=== PATIENT | female | born 1965 | race Caucasian/White ===

== ENCOUNTER → 2018-01-01 | Outpatient (CLI) | payer BC ==
[2018-01-01 15:08] VITALS: BP 137/86; PULSE 75; TEMP 97.9; BMI 51.9
--- NOTE | 2018-01-01 15:37 | P.HPBAR ---
Bariatric H&P - History & Physicial H&P Date: 01/01/18 History & Physicial: Visit/CC: initial visit Patient initial contact: Initial weight: Initial weight in pounds: Height: 5 ft 7 in Initial BMI: Last weight: Current weight: 150.411 kg Current weight in pounds: 331.60 Current BMI: 51.9 [place] body weight (based on NIH guidelines): 61.235 kg Excess body weight loss: The patient is a 52 year-old F who presents for Bariatric Assessment. Patient seen today as a new patient for bariatric clinic. She went to a recent seminar in November. She had a lap band placed in May 2002. Apparently her band was removed about a year later because of dysphagia symptoms. She denies having a infection of her band. Since that time she has regained her weight. She had been doing well with her weight loss at that time and believes that she lost over 100 pounds with her lap band. Currently the patient suffers from asthma, hypertension, mild heartburn symptoms. She also has a history of mitral valve prolapse. Denies DVT or dysphagia. She is interested in sleeve gastrectomy. She is not interested in the long-term sequela of gastric bypass. She does not use tobacco. Review of Systems The patient denies any acute changes in vision or hearing, no dysphagia or odynophagia, no chest pain or shortness of breath, no dysuria or hematuria, no headache, no runny nose, no rectal bleeding or melena, no unexplained weight loss Past Medical History Past Medical History: Asthma, Hypertension, Mitral Valve Prolapse (MVP), Thyroid Disorder Additional Past Medical History / Comment(s): STATES COLITIS SEEN ON CT SCAN History of Any Multi-Drug Resistant Organisms: None Reported Past Surgical History: Bariatric Surgery, Section, Cholecystectomy, Tubal Ligation Additional Past Surgical History / Comment(s): HAS HAD LAP BAND SX AND REMOVAL Past Anesthesia/Blood Transfusion Reactions: Postoperative Nausea & Vomiting ( PONV) Additional Past Anesthesia/Blood Transfusion Reaction / Comm: AFTER CSECTION Past Psychological History: No Psychological Hx Reported Smoking Status: Never smoker Past Alcohol Use History: Occasional Past Drug Use History: None Reported Surgical - Exam Vital Signs Temp Pulse BP 97.9 F 75 137/86 01/01/18 15:01 01/01/18 15:01 01/01/18 15:01 Physical exam: General: Well-developed, well-nourished HEENT: Normocephalic, sclerae nonicteric Abdomen: Nontender, nondistended Extremities: No edema Neuro: Alert and oriented Bariatric Assessment & Plan (1) Morbid obesity Narrative/Plan: Options of surgical treatment of morbid obesity discussed with the patient in detail. The risks, benefits, and expected weight loss with the various procedures were reviewed. She remains interested in sleeve gastrectomy. We'll plan preoperative upper endoscopy. Will await PCP letter supporting her decision. Status: Acute Bariatric Checklist Checklist: Plan: Checklist: EGD: 1. Hiatal hernia: 2. H. Pylori: HgbA1c: Vitamin D: Smoking: Never smoker Primary care physician referral: silke guthrie Psychiatry clearance: Cardiology clearance: Sleep study: Diet journal: VTE risk score: VTE risk level: Rehab needs at discharge:
== END | disposition home or self-care (01) ==
LOC: BARWHC3 14:43
PROVIDERS: ATTEND Surgery
DX: Z09 Encounter for follow-up examination after completed treatment for conditions other than malignant neoplasm (principal); E66.01 Morbid (severe) obesity due to excess calories; R13.10 Dysphagia, unspecified; R12 Heartburn; J45.909 Unspecified asthma, uncomplicated; I10 Essential (primary) hypertension; I34.1 Nonrheumatic mitral (valve) prolapse; Z98.84 Bariatric surgery status; Z90.49 Acquired absence of other specified parts of digestive tract; Z98.51 Tubal ligation status; Z68.43 Body mass index [BMI] 50.0-59.9, adult
CPT/HCPCS: 99211

== ENCOUNTER → 2018-01-16 | Day surgery (SDC) | payer BC ==
[2018-01-14 09:27] VITALS: BMI 52.4
[~2018-01-16] MED LIST: LACTATED RINGERS 1,000 ML IV SCH; LIDOCAINE 1% 20 ML VIAL (10MG/ML) FOR IV START INTRADERMA ONE; LIDOCAINE 1% INJ 10MG/ML (20 ML MDV) ONE; PROPOFOL 10 MG/ML 20 ML VIAL IV ONE
[2018-01-16 09:43] VITALS: TEMP 96.4
--- NOTE | 2018-01-16 10:19 | P.GSHP ---
History of Present Illness H&P Date: 01/16/18 Chief Complaint: GERD Patient known to our service. Seen with sleeve gastrectomy. Mild reflux at times. History of previous lap band. Lap band was removed. Past Medical History Past Medical History: Asthma, Hypertension, Mitral Valve Prolapse (MVP), Thyroid Disorder Additional Past Medical History / Comment(s): STATES COLITIS SEEN ON CT SCAN History of Any Multi-Drug Resistant Organisms: None Reported Past Surgical History: Bariatric Surgery, Section, Cholecystectomy, Tubal Ligation, Uterine Ablation Additional Past Surgical History / Comment(s): HAS HAD LAP BAND SX AND REMOVAL Past Anesthesia/Blood Transfusion Reactions: Postoperative Nausea & Vomiting ( PONV) Additional Past Anesthesia/Blood Transfusion Reaction / Comment(s): AFTER CSECTION Smoking Status: Never smoker - Past Family History Father Family Medical History: Deep Vein Thrombosis (DVT) Mother Family Medical History: Deep Vein Thrombosis (DVT) Medications and Allergies Home Medications Medication Instructions Recorded Confirmed Type Albuterol Inhaler [Ventolin Hfa 1 puff INHALATION DIRECTED 01/01/18 01/16/18 History Inhaler] Losartan Potassium [Cozaar] 100 mg PO DAILY 01/01/18 01/16/18 History Verapamil HCl [Verapamil ER] 180 mg PO DAILY 01/01/18 01/16/18 History Thyroid,Pork [[place] Thyroid] 180 mg PO DAILY 01/14/18 01/16/18 History Allergies Allergy/AdvReac Type Severity Reaction Status Date / Time ciprofloxacin [From Cipro] Allergy Rash/Hives Verified 01/14/18 09:22 codeine Allergy Nausea & Verified 01/14/18 09:22 Vomiting levofloxacin [From Levaquin] Allergy Unknown Verified 01/14/18 09:22 metronidazole [From Flagyl] Allergy Rash/Hives Verified 01/14/18 09:22 Surgical - Exam Vital Signs Temp Pulse Resp BP Pulse Ox 96.4 F L 63 16 145/72 98 01/16/18 09:42 01/16/18 09:42 01/16/18 09:42 01/16/18 09:42 01/16/18 09:42 Physical exam: General: Well-developed, well-nourished HEENT: Normocephalic, sclerae nonicteric Abdomen: Nontender, nondistended Extremities: No edema Neuro: Alert and oriented Assessment and Plan (1) GERD (gastroesophageal reflux disease) Narrative/Plan: Will proceed with EGD at this time Current Visit: Yes Status: Acute Code(s): K21.9 - GASTRO-ESOPHAGEAL REFLUX DISEASE WITHOUT ESOPHAGITIS SNOMED Code(s): 286100501
--- NOTE | 2018-01-16 10:27 | P.PCN ---
Date of Procedure: 01/16/18 Procedure(s) Performed: Preoperative Dx: GERD, presurgical Postoperative Dx: Mild gastritis Procedure: EGD with Bx Anesthesia: Sedation Endoscopist: Dr. Subramanian Specimens: Antrum Endoscopic Procedure: The patient was on the endoscopy table in the left decubitus position. The Olympus gastroscope was inserted into the oropharynx and passed under direct visualization to the region of the third portion of the duodenum. From that point the scope was slowly withdrawn inspecting all surfaces carefully. There were no neoplastic inflammatory or polypoid lesions throughout the duodenum. The pylorus was widely patent. The stomach was carefully inspected. There was gastritis. A biopsy of the antrum took place to rule out H. pylori. Retroflexion revealed evidence of previous band plication with a fold present in the upper stomach. There may have been a very small sliding hiatal hernia although difficult to say with certainty because of the scarring from previous lap band. The esophagus was then carefully examined. There were no neoplastic inflammatory or polypoid lesions throughout the visualized esophagus. The patient was then taken to the recovery room in stable condition per anesthesia guidelines. Recommendations: Await biopsy results. Follow bariatric clinic.
[2018-01-16 10:49] VITALS: BP 140/90; PULSE 78; RESP 18
== END | disposition home or self-care (01) ==
LOC: ORWHC2ENDO 09:11
PROVIDERS: ATTEND Surgery
DX: K29.50 Unspecified chronic gastritis without bleeding (principal); K21.9 Gastro-esophageal reflux disease without esophagitis; I34.1 Nonrheumatic mitral (valve) prolapse; I10 Essential (primary) hypertension; E07.9 Disorder of thyroid, unspecified; J45.909 Unspecified asthma, uncomplicated; Z88.1 Allergy status to other antibiotic agents; Z98.84 Bariatric surgery status; Z90.49 Acquired absence of other specified parts of digestive tract; Z88.5 Allergy status to narcotic agent; Z88.3 Allergy status to other anti-infective agents; Z79.899 Other long term (current) drug therapy
CPT/HCPCS: 88305; 43239; J2001; J2704

== ENCOUNTER → 2018-03-17 | Outpatient (CLI) | payer BC ==
[2018-03-17 15:35] VITALS: BP 177/74; PULSE 78; TEMP 98.2; BMI 55.4
--- NOTE | 2018-03-17 16:06 | P.BASOAP ---
Subjective Progress Note Date: 03/17/18 Principal diagnosis: Morbid obesity Patient following up after recent upper endoscopy. Remains interested in sleeve gastrectomy. No new medical issues. Objective - Vital Signs Vital signs: Vital Signs Temp 98.2 F 03/17/18 15:30 Pulse 78 03/17/18 15:30 Resp BP 177/74 03/17/18 15:30 Pulse Ox Intake & Output 03/16/18 03/17/18 03/17/18 18:59 06:59 18:59 Weight 160.572 kg - Exam Abdomen: Soft, nontender, nondistended Assessment/Plan (1) Morbid obesity Narrative/Plan: The surgical consent form was reviewed in detail with the patient. All questions were answered appropriately. We are still waiting for psychiatric evaluation. We'll tentatively proceed with sleeve gastrectomy in late March. Plan: Date: 03/17/18 Initial Weight: Initial BMI: Current Weight: 160.572 kg Current BMI: 55.4 Type of Surgery: Vertical Sleeve Gastrectomy Total Volume in Band: Previous Volume: Volume Removed: Volume Added: Band Size:
== END ==
LOC: BARWHC3 14:37
PROVIDERS: ATTEND Surgery
DX: E66.01 Morbid (severe) obesity due to excess calories (principal); Z68.43 Body mass index [BMI] 50.0-59.9, adult
CPT/HCPCS: 99211

== ENCOUNTER → 2018-03-23 | Outpatient (CLI) | payer BC ==
[2018-03-23 13:48] VITALS: BMI 55.2
== END | disposition home or self-care (01) ==
LOC: BARWHC3 08:33
PROVIDERS: ATTEND Surgery
DX: E66.01 Morbid (severe) obesity due to excess calories (principal); Z68.43 Body mass index [BMI] 50.0-59.9, adult
CPT/HCPCS: 97804

== ENCOUNTER → 2018-04-03 | Outpatient (CLI) | payer BC ==
[2018-04-03 13:33] LABS: Basophils # (A) 0.1 k/uL (0-0.2); Basophils % (A) 1 %; Eosinophils # (A) 0.2 k/uL (0-0.7); Eosinophils % (A) 2 %; HCT 43.8 % (34.0-46.0); Lymphocytes # (A) 2.7 k/uL (1.0-4.8); Lymphocytes % (A) 26 %; MCH 28.6 pg (25.0-35.0); MCHC 32.1 g/dL (31.0-37.0); Mean Platelet Volume 7.4; Monocytes # (A) 0.6 k/uL (0-1.0); Monocytes % (A) 6 %; Neutrophils # (A) 6.9 k/uL (1.3-7.7); Neutrophils % (A) 65 %; Platelet Count 208 k/uL (150-450); RBC 4.92 m/uL (3.80-5.40); RDW 14.5 % (11.5-15.5); WBC 10.7 k/uL (3.8-10.6)
[2018-04-03 13:46] LABS: ALT 41 U/L (9-52); AST 17 U/L (14-36); Albumin 3.4 g/dL (3.5-5.0); Alkaline Phosphatase 70 U/L (38-126); Anion Gap 6 mmol/L; Blood Urea Nitrogen 15 mg/dL (7-17); Calcium 8.9 mg/dL (8.4-10.2); Carbon Dioxide 29 mmol/L (22-30); Chloride 104 mmol/L (98-107); Glucose 86 mg/dL (74-99); Potassium 4.3 mmol/L (3.5-5.1); Sodium 139 mmol/L (137-145); Total Bilirubin 0.3 mg/dL (0.2-1.3); Total Protein 5.9 g/dL (6.3-8.2)
== END | disposition home or self-care (01) ==
LOC: LABPAT 11:53
PROVIDERS: ATTEND Surgery
DX: Z01.812 Encounter for preprocedural laboratory examination (principal)
CPT/HCPCS: 36415; 80053; 85025

== ENCOUNTER 2018-04-20 06:16 | Inpatient (IN) | payer BC ==
[~2018-04-20 06:16] MED LIST changes: +DEXAMETHASONE SOD PHOSPHATE 10 MG/ML 1 ML VIAL IV ONE; -LACTATED RINGERS 1,000 ML IV SCH; -LIDOCAINE 1% 20 ML VIAL (10MG/ML) FOR IV START INTRADERMA ONE; -LIDOCAINE 1% INJ 10MG/ML (20 ML MDV) ONE; +MIDAZOLAM 2 MG/2 ML VIAL IV PRN; +ONDANSETRON 4 MG/2 ML VIAL IVP ONE; -PROPOFOL 10 MG/ML 20 ML VIAL IV ONE; +SCOPOLAMINE 1.5MG/72HR PATCH TRANSDERM ONE
[2018-04-20] MEDS ORDERED: LIDOCAINE 1% 20 ML VIAL (10MG/ML) FOR IV START INTRADERMA ONE (07:20)
[2018-04-20] MEDS: LACTATED RINGERS 1,000 ML IV SCH (07:22)
[2018-04-20] MEDS ORDERED: METHYLENE BLUE 30 MG in DEXTROSE 5% IN WATER 500 ML IRRIGATION ONE ×2 (07:34)
--- NOTE | 2018-04-20 08:08 | P.GSHP ---
History of Present Illness H&P Date: 04/20/18 Chief Complaint: Morbid obesity 53-year-old female known to our service. She is here today for elective sleeve gastrectomy. Patient had a previous lap band placed and surgical he removed because of intolerance. Denies dysphagia or vomiting currently. Recent upper endoscopy showed mild gastritis without hiatal hernia. No abdominal pain. No history of DVT in the past. Patient has history of hypertension and asthma. Past Medical History Past Medical History: Asthma, Hypertension, Mitral Valve Prolapse (MVP), Thyroid Disorder Additional Past Medical History / Comment(s): HX COLITIS SEEN ON CT SCAN. SCIATICIA RT SIDE "ACTING UP." BACK PAIN W/ EXTENDED STANDING, DDD. HASHIMOTOS. History of Any Multi-Drug Resistant Organisms: None Reported Past Surgical History: Bariatric Surgery, Section, Cholecystectomy, Tubal Ligation, Uterine Ablation Additional Past Surgical History / Comment(s): HAS HAD LAP BAND SX AND REMOVAL. C-S X3. COLONOSCOPY, EGD. Past Anesthesia/Blood Transfusion Reactions: Motion Sickness, Postoperative Nausea & Vomiting (PONV) Additional Past Anesthesia/Blood Transfusion Reaction / Comment(s): AFTER C- SECTION Smoking Status: Never smoker - Past Family History Father Family Medical History: Cancer, Deep Vein Thrombosis (DVT) Mother Family Medical History: Cancer, Deep Vein Thrombosis (DVT) Additional Family Medical History / Comment(s): NHL Medications and Allergies Home Medications Medication Instructions Recorded Confirmed Type Losartan Potassium [Cozaar] 100 mg PO DAILY 01/01/18 04/20/18 History Verapamil HCl [Verapamil ER] 180 mg PO DAILY 01/01/18 04/20/18 History Thyroid, Pork [[place] Thyroid] 30 mg PO DAILY 03/23/18 04/20/18 History Thyroid,Pork [[place] Thyroid] 120 mg PO DAILY 03/23/18 04/20/18 History Acetaminophen [Tylenol Extra 500 - 1,000 mg PO Q6H PRN 04/13/18 04/20/18 History Strength] Albuterol Sulfate [Proair Hfa] 1 - 2 puff INHALATION Q6HR PRN 04/13/18 04/20/18 History Budesonide/Formoterol Fumarate 2 puff INHALATION BID 04/13/18 04/20/18 History [Symbicort 160-4.5 Mcg Inhaler] Ipratropium [place] [Atrovent Hfa] 1 puff INHALATION QID PRN 04/13/18 04/20/18 History Montelukast [Singulair] 10 mg PO DAILY 04/13/18 04/20/18 History Allergies Allergy/AdvReac Type Severity Reaction Status Date / Time ciprofloxacin [From Cipro] Allergy Rash/Hives Verified 04/20/18 06:50 codeine Allergy Nausea & Verified 04/20/18 06:50 Vomiting levofloxacin [From Levaquin] Allergy Unknown Verified 04/20/18 06:50 metronidazole [From Flagyl] Allergy Rash/Hives Verified 04/20/18 06:50 perfume Allergy Dyspnea Verified 04/20/18 06:50 gluten AdvReac Nausea & Verified 04/20/18 06:50 Vomiting & Diarrhea Surgical - Exam Vital Signs Temp Pulse Resp BP Pulse Ox 98.2 F 68 16 141/79 96 04/20/18 07:20 04/20/18 07:20 04/20/18 07:20 04/20/18 07:20 04/20/18 07:20 Physical exam: General: Well-developed, well-nourished HEENT: Normocephalic, sclerae nonicteric Abdomen: Nontender, nondistended Extremities: No edema Neuro: Alert and oriented Assessment and Plan (1) Morbid obesity Narrative/Plan: Will proceed with sleeve gastrectomy at this time. The risks of bleeding, infection, stenosis, stricture, leak, abscess, fistula formation, peritonitis, poor weight loss, reflux, vomiting, conversion to an open procedure, aborting sleeve gastrectomy, PR, PE, DVT, and were discussed. The patient understands and wishes to proceed. Current Visit: No Status: Acute Code(s): E66.01 - MORBID (SEVERE) OBESITY DUE TO EXCESS CALORIES SNOMED Code(s): 293110835
[2018-04-20] MEDS ORDERED: ENOXAPARIN 40 MG/0.4 ML SYRINGE SQ STA (08:19)
[2018-04-20] MEDS ORDERED: LIDOCAINE 1% INJ 10MG/ML (20 ML MDV) ONE (08:25)
[2018-04-20] MEDS ORDERED: NEOSTIGMINE 1 MG/ML 10 ML VIAL ONE (08:25)
[2018-04-20] MEDS ORDERED: fentaNYL (PF) 50 MCG/ML 2 ML AMP ONE (08:25)
[2018-04-20] MEDS ORDERED: PROPOFOL 10 MG/ML 20 ML VIAL IV ONE (08:25)
[2018-04-20] MEDS ORDERED: MIDAZOLAM 2 MG/2 ML VIAL ONE (08:25)
[2018-04-20] MEDS ORDERED: GLYCOPYRROLATE 0.2 MG/ML 2 ML VIAL ONE (08:25)
[2018-04-20] MEDS ORDERED: SUCCINYLCHOLINE CHLORIDE VIAL 200 MG/10 ML VIAL IV ONE (08:25)
[2018-04-20] MEDS ORDERED: ROCURONIUM BROMIDE 10 MG/ML 10 ML VIAL IV ONE (08:25)
[2018-04-20] MEDS ORDERED: KETOROLAC 30 MG/ML 1 ML VIAL ONE (08:25)
[2018-04-20] MEDS ORDERED: BUPIVACAIN-EPI 0.5%-1:200,000 30 ML VIAL SQ ONE (08:59)
[2018-04-20] MEDS ORDERED: LACTATED RINGERS 1,000 ML IV ONE (10:14)
[2018-04-20] MEDS ORDERED: NALOXONE 0.4 MG/ML 1 ML VIAL IV PRN (10:14)
[2018-04-20] MEDS ORDERED: ACETAMINOPHEN IV (For NPO) 1,000 MG in EMPTY BAG 1 BAG IVPB ONE (10:14)
[2018-04-20] MEDS ORDERED: diphenhydrAMINE 50 MG/ML 1 ML VIAL IVP PRN (10:14)
--- NOTE | 2018-04-20 10:19 | P.OP ---
Date of Procedure: 04/20/18 Procedure(s) Performed: PREOPERATIVE DIAGNOSIS: Morbid obesity, asthma, hypertension POSTOPERATIVE DIAGNOSIS: Same PROCEDURE: Laparoscopic sleeve gastrectomy SURGEON: Moris EBL: Minimal ANESTHESIA: General COMPLICATIONS: None OPERATIVE PROCEDURE: Patient was placed in the operating table in the supine position. She was placed under general anesthesia at that time. The abdomen was prepped and draped in sterile fashion after the patient was placed in lithotomy. A 5 mm optical trocar was used to enter the abdominal cavity in the left upper quadrant. Insufflation took place to 15 millimeters mercury. An additional right subxiphoid 5 mm trocar was then placed under direct visualization and then removed. 2 additional 5 mm trochars were placed in the right upper quadrant and left upper quadrant under direct visualization and a 15 mm trocar in the supraumbilical location. The liver was retracted using a medium Lala liver retractor through the right subxiphoid trocar site. The patient had adhesions between the left lobe of the liver and the previous band site that were lysed using a combination of the LigaSure device and sharp dissection. The plication was taken down using the LigaSure device as well staying on the specimen side of the stomach. The hiatus was inspected. The patient had no visible hiatal hernia At that point I moved to the mid aspect of the greater curvature the stomach. The short gastric vasculature was divided using a LigaSure device proximally. I then switched and divided the short gastrics distally to a 3-4 cm from the pylorus. The dissection took place up to the left diaphragmatic crura at that point. The posterior short gastrics were likewise divided using the LigaSure device. Once the stomach was fully mobilized the blunt tipped 40-Icelandic bougie dilator was advanced into the stomach and advanced all the way to the prepyloric location. A black echelon 60 stapler was utilized and fired tangentially across the antrum taking care to avoid narrowing at the incisura angularis. Subsequent firings of the stapler took place. A total of 5 green echelon 60 staplers with seam guard took place proximally staying on the outer edge of our dilator. Once we reached the most proximal portion of the stomach a single firing of the gold echelon 60 stapler without seen guard took place. The oral gastric tube was reinserted. The stomach was insufflated with approximately 100 mL of methylene blue. No evidence of leak or obstruction was seen. Tisseel fibrin glue was used along the length of the staple line. Prior to that there are 2 areas of slight oozing from the staple line that were controlled using the 12 mm clip csr. The stomach remnant was removed from the 15 mm trocar site without difficulty. The fascia at the 15 more site was closed using interrupted 0 Vicryl sutures with the laparoscopic suture passer and Alan Benjamin technique. The insufflation was evacuated. The skin at all 5 incisions were closed using 4-0 Monocryl sutures. Steri-Strips and sterile dressings were then applied. DISPOSITION: Stable to recovery room
[2018-04-20] MEDS: fentaNYL (PF) 50 MCG/ML 2 ML AMP IV PRN ×2 (10:45→11:00)
[2018-04-20] MEDS: HYDROmorphone 1 MG/ML 1 ML SYRINGE IVP ONE ×4 (11:13→11:41)
[2018-04-20] MEDS: ALBUTEROL NEBULIZED 2.5 MG/3 ML INHALATION SCH ×3 (11:50→19:22)
[2018-04-20] MEDS: ONDANSETRON 4 MG/2 ML VIAL IVP PRN (12:22)
[2018-04-20] MEDS: 0.9% NACL WITH KCL 20 MEQ/L 1,000 ML IV SCH ×3 (13:42→20:18)
[2018-04-20] MEDS: HYDROmorphone 1 MG/ML 1 ML SYRINGE IVP PRN ×3 (13:46→22:20)
[2018-04-20 13:53] VITALS: BMI 52.4
--- NOTE | 2018-04-20 22:33 | CONS ---
CONSULTATION DATE OF CONSULTATION: 04/20/2018 REASON FOR CONSULTATION: Medical management requested by Dr. Subramanian. CONSULTATION: This is a 53-year-old patient of Dr. Shearer. The patient underwent a sleeve gastrectomy by Dr. Subramanian earlier today. Post procedure, no nausea, vomiting. Has not passed any flatus. Pain is well controlled. Lying in bed. Chronic stable medical conditions include asthma, hypertension, hypothyroid, sciatica on the right side. The patient also had Christy's. The patient is currently n.p.o. except for ice chips. The patient is due for upper GI fluoroscopy in the morning. REVIEW OF SYSTEMS: CONSTITUTIONAL: None. HEENT: None. RESPIRATORY: None. CARDIOVASCULAR: None. GASTROINTESTINAL: None. GENITOURINARY: None. MUSCULOSKELETAL: None. DERMATOLOGICAL: None. HEMATOLOGICAL: None. LYMPHATICS: None. PSYCHIATRY: None. NEUROLOGICAL: None. PAST MEDICAL HISTORY: Asthma, hypertension, mitral valve prolapse, hypothyroid with Christy's, sciatica on the right side, some back pain. PAST SURGICAL HISTORY: , cholecystectomy, tubal ligation, uterine ablation, had lap band surgery that was removed, x3, EGD and colonoscopy. SOCIAL HISTORY: No smoking, no alcohol. . 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 FAMILY HISTORY: DVT, non-Hodgkin's lymphoma. HOME MEDICATIONS: 1. Verapamil ER 180 mg a day. 2. [place] thyroid 150 mg a day. 3. Singulair 10 mg a day. 4. Cozaar 100 mg a day. 5. Atrovent 1 puff q.i.d. p.r.n. 6. Symbicort 160/4.5, 2 puffs b.i.d. 7. ProAir 1 to 2 puffs q.6h p.r.n. 8. Tylenol Extra Strength q.6h p.r.n. 9. Ultram 50 mg q.6h p.r.n. 10.Simethicone 40 mg p.o. p.c. h.s. p.r.n. 11.Zofran 4 mg q.8h p.r.n. 12.Dulcolax 5 mg p.o. daily p.r.n. ALLERGIES: CIPRO, CODEINE, LEVAQUIN, FLAGYL, PERFUME, GLUTEN. PHYSICAL EXAMINATION: Temperature 97, pulse 78, respiration 16, blood pressure 108/75, pulse 98% on 2 L. GENERAL APPEARANCE: Morbidly obese, BMI 52.5, lying in bed, comfortable. EYES: Pupils are equal and conjunctivae normal. HEENT: External appearance of nose and ears. Oral cavity normal. NECK: JVD unable to assess. Mass not palpable. Respiratory effort normal. LUNGS: Distant breath sounds. CARDIOVASCULAR: Heart sounds muffled, no edema. ABDOMEN: Minimal tenderness, soft. Liver and spleen not palpable. LYMPHATICS: No lymph nodes palpable in neck and axillae. PSYCHIATRY: Alert and oriented x3. Mood and affect normal. NEUROLOGIC: Pupils equal. Cranial nerves grossly intact. Power and sensation grossly intact. INVESTIGATIONS: Blood work from 04/03/2018 shows white count 10.9, hemoglobin 14.0, platelets 208, potassium 4.3, BUN and creatinine is normal. ASSESSMENT: 1. Sleeve gastrectomy for morbid obesity, BMI of greater than 52. 2. Mild persistent asthma, stable. 3. Essential hypertension. 4. Hypothyroidism from Christy's. 5. Right-sided sciatica. PLAN: The patient is currently n.p.o. The patient's home medications are to be resumed. Once the patient has past and okayed by Dr. Subramanian. The patient has got Venodyne boots in place for DVT prophylaxis and Lovenox. Care was discussed with the patient. Questions were answered. Thank you, Dr. Subramanian. MMCHANTALE / MARTHAN: [id number] /
[2018-04-21] MEDS: SYMBICORT 160-4.5 MCG INHALER INHALATION SCH ×4 (01:48→20:05)
[2018-04-21] MEDS: HYDROmorphone 1 MG/ML 1 ML SYRINGE IVP PRN ×3 (02:44→14:16)
[2018-04-21] MEDS: 0.9% NACL WITH KCL 20 MEQ/L 1,000 ML IV SCH (02:45)
[2018-04-21] MEDS: LACTATED RINGERS 1,000 ML IV SCH (05:05)
[2018-04-21] MEDS: ALBUTEROL NEBULIZED 2.5 MG/3 ML INHALATION SCH ×4 (07:01→20:06)
[2018-04-21 07:10] LABS: Basophils % (A) 0 %; Eosinophils % (A) 0 %; HCT 42.4 % (34.0-46.0); HGB 13.7 gm/dL (11.4-16.0); Hypochromasia Slight; Lymphocytes # (A) 1.1 k/uL (1.0-4.8); Lymphocytes % (A) 13 %; MCH 29.6 pg (25.0-35.0); MCHC 32.2 g/dL (31.0-37.0); MCV 91.8 fL (80.0-100.0); Mean Platelet Volume 7.5; Monocytes # (A) 0.5 k/uL (0-1.0); Monocytes % (A) 7 %; Neutrophils # (A) 6.3 k/uL (1.3-7.7); Neutrophils % (A) 78 %; Platelet Count 219 k/uL (150-450); RBC 4.62 m/uL (3.80-5.40); RDW 14.4 % (11.5-15.5)
[2018-04-21 07:39] LABS: Anion Gap 5 mmol/L; Blood Urea Nitrogen 9 mg/dL (7-17); Carbon Dioxide 28 mmol/L (22-30); Chloride 108 mmol/L (98-107); Phosphorus 3.6 mg/dL (2.5-4.5); Potassium 4.8 mmol/L (3.5-5.1); Sodium 141 mmol/L (137-145)
[2018-04-21] MEDS: PANTOPRAZOLE 40 MG/10 ML VIAL IV SCH (08:21)
[2018-04-21] MEDS: ENOXAPARIN 40 MG/0.4 ML SYRINGE SQ SCH ×2 (09:03→20:16)
[2018-04-21] MEDS: LOSARTAN 50 MG TAB PO SCH (09:03)
[2018-04-21] MEDS: VERAPAMIL SR 180 MG TABLET.ER PO SCH (09:03)
[2018-04-21] MEDS: MONTELUKAST 10 MG TAB PO SCH (09:04)
[2018-04-21] MEDS: THYROID, PORK 30 MG TAB PO SCH ×2 (09:04)
[2018-04-21] MEDS: 1: MVI, ADULT NO.4 WITH VIT K 10 ML, THIAMINE 100 MG, FOLIC ACID 1 MG, POTASSIUM CHLORID IV SCH ×12 (09:42→19:42)
--- NOTE | 2018-04-21 10:21 | FL ---
EXAMINATION TYPE: FL UGI DATE OF EXAM: 04/21/2018 COMPARISON: None HISTORY: Post gastric sleeve TECHNIQUE: A single contrast UGI study is performed. FINDINGS: Contrast passes from the distal esophagus through the gastric sleeve with mild hesitancy. N o extravasation of contrast is evident. No free air is noted during this examination. Overhead radiographs were obtained which are unremarkable. Fluoroscopy time: 41 seconds. Images: 13 IMPRESSIONS: 1. Normal post gastric sleeve without obstruction or hesitancy. No extravasation.
--- NOTE | 2018-04-21 12:10 | P.PN ---
<Zoila Hawk - Last Filed: 04/21/18 12:03> Subjective Progress Note Date: 04/21/18 53-year-old female resting in bed. Chief complaint not able to sleep last night too much noise" abdomen soft surgical incision sites dry heart rate in the 70s afebrile Laparoscopic sleeve gastrectomy DONE on April 20 Objective - Vital Signs Vital signs: Vital Signs Temp 98.2 F 04/21/18 07:05 Pulse 70 04/21/18 07:15 Resp 18 04/21/18 07:05 BP 120/70 04/21/18 07:05 Pulse Ox 98 04/21/18 07:05 Intake & Output 04/20/18 04/21/18 04/21/18 18:59 06:59 18:59 Intake Total 1350 50 Output Total 10 Balance 1340 50 Weight 152.1 kg 152.1 kg Intake: IV 1350 Oral 50 Output: Estimated Blood Loss 10 Other: Voiding Method Toilet - Exam Physical exam 53-year-old female resting in bed states pain medication effective for pain control Lungs adequate air movement bilaterally no shortness of breath Heart S1 2 audible regular Abdomen obese surgical incision sites dry few hypoactive bowel tones tolerating clear liquid no nausea no vomiting states pain medication effective for pain control Extremities no edema noted - Labs CBC & Chem 7: 04/21/18 06:40 04/21/18 06:40 Labs: Abnormal Lab Results - Last 24 Hours (Table) 04/21/18 Range/Units 06:40 Chloride 108 H (98-107) mmol/L Assessment and Plan Assessment: Impression Morbid obesity status post laparoscopic sleeve gastrectomy done on April 20 Morbid obesity BMI 52 Asthma no evidence of an exacerbation Hypertension essential Plan Continue postop bariatric care Bariatric diet as ordered Pain control PT OT eval Further recommendations pending clinical course The above impression and plan of care have been discussed and directed by signing physician. Zoila Hawk nurse practitioner acting as scribe for signing physician. <Maldonado Subramanian - Last Filed: 04/21/18 22:56> Objective - Vital Signs Vital signs: Vital Signs Temp 99.3 F 04/21/18 19:00 Pulse 80 04/21/18 19:00 Resp 16 04/21/18 19:55 BP 123/74 04/21/18 19:00 Pulse Ox 94 L 04/21/18 19:00 Intake & Output 04/21/18 04/21/18 04/22/18 06:59 18:59 06:59 Intake Total 150 Balance 150 Weight 152.1 kg Intake: Oral 150 Other: Voiding Method Toilet Toilet # Voids 2 - Labs CBC & Chem 7: 04/21/18 06:40 04/21/18 06:40 Labs: Abnormal Lab Results - Last 24 Hours (Table) 04/21/18 Range/Units 06:40 Chloride 108 H (98-107) mmol/L Assessment and Plan Assessment: Patient's upper GI labs and vitals look good. Her oral intake however this been poor because of ongoing nausea this afternoon. Mild discomfort. Continue bariatric liquids. Increase activity. We'll reevaluate tomorrow. (1) Morbid obesity Current Visit: Yes Status: Acute Code(s): E66.01 - MORBID (SEVERE) OBESITY DUE TO EXCESS CALORIES SNOMED Code(s): 947130771
[2018-04-21] MEDS: ONDANSETRON 4 MG/2 ML VIAL IVP PRN (14:19)
[2018-04-21] MEDS: SIMETHICONE 40 MG/0.6 ML DROPS 2,000 MG/30 ML BOTTLE PO PRN (20:43)
[2018-04-21] MEDS: HYOSCYAMINE ORAL DROPS 1.875 MG/15 ML BOTTLE PO PRN (20:43)
[2018-04-21] MEDS: METOCLOPRAMIDE 5 MG/ML 2 ML VIAL IVP PRN (20:58)
--- NOTE | 2018-04-21 22:59 | PN ---
PROGRESS NOTE DATE OF SERVICE: 04/21/2018 PRESENT COMPLAINT: Sleeve gastrectomy. INTERVAL HISTORY: Patient is status post sleeve gastrectomy. Having some nausea, did pass upper GI series. I saw this patient earlier today. Did tolerate a liquid diet. No flatus. Overall feeling stable. REVIEW OF SYSTEMS: Done for constitutional, cardiovascular, GI, pulmonary; relevant findings as above. CURRENT MEDICATIONS: Reviewed. EXAMINATION: Temperature 99.1, pulse 61, respirations 12, blood pressure 104/73, pulse ox 94% on room air. GENERAL APPEARANCE: Lying in bed, awake. EYES: Pupils equal. Conjunctivae normal. HEENT: External nose and ears normal. Oral cavity normal. Neck: JVD unable to assess. Mass not palpable. RESPIRATORY: Effort normal. LUNGS: Distant breath sounds. CARDIOVASCULAR: Heart sounds muffled. No edema. ABDOMEN: Soft, minimal tenderness. Liver and spleen not palpable. PSYCHIATRY: Alert and oriented x3. Mood and affect normal. INVESTIGATIONS: Upper GI, colonoscopy negative. ASSESSMENT: 1. Sleeve gastrectomy for morbid obesity, BMI greater than 52. 2. Mild persistent asthma, stable. 3. Essential hypertension. 4. Hypothyroidism. 5. Right-sided sciatica. PLAN: Stable. Continue current medication and treatment plan. Care was discussed the patient. Thank you, Dr. Subramanian. MMAUBREYL / MARTHAN: [id number] /
[2018-04-21] MEDS: KETOROLAC 30 MG/ML 1 ML VIAL IVP SCH (23:44)
[2018-04-22] MEDS: LACTATED RINGERS 1,000 ML IV SCH (02:59)
[2018-04-22] MEDS: 1: MVI, ADULT NO.4 WITH VIT K 10 ML, THIAMINE 100 MG, FOLIC ACID 1 MG, POTASSIUM CHLORID IV SCH ×18 (05:13→23:37)
[2018-04-22] MEDS: KETOROLAC 30 MG/ML 1 ML VIAL IVP SCH ×4 (05:14→23:37)
[2018-04-22] MEDS: PANTOPRAZOLE 40 MG/10 ML VIAL IV SCH (08:17)
[2018-04-22] MEDS: VERAPAMIL SR 180 MG TABLET.ER PO SCH (08:18)
[2018-04-22] MEDS: LOSARTAN 50 MG TAB PO SCH (08:18)
[2018-04-22] MEDS: ENOXAPARIN 40 MG/0.4 ML SYRINGE SQ SCH ×2 (08:18→21:03)
[2018-04-22] MEDS: THYROID, PORK 30 MG TAB PO SCH ×2 (08:18)
[2018-04-22] MEDS: MONTELUKAST 10 MG TAB PO SCH (08:18)
[2018-04-22] MEDS: METOCLOPRAMIDE 5 MG/ML 2 ML VIAL IVP PRN ×3 (08:18→21:04)
[2018-04-22] MEDS: ONDANSETRON 4 MG/2 ML VIAL IVP PRN (08:27)
[2018-04-22] MEDS: SYMBICORT 160-4.5 MCG INHALER INHALATION SCH ×3 (09:06→20:18)
[2018-04-22] MEDS: ALBUTEROL NEBULIZED 2.5 MG/3 ML INHALATION SCH ×4 (09:06→20:14)
[2018-04-22 11:48] LABS: Basophils % (A) 1 %; Eosinophils # (A) 0.2 k/uL (0-0.7); Eosinophils % (A) 4 %; HCT 42.4 % (34.0-46.0); HGB 13.2 gm/dL (11.4-16.0); Hypochromasia Slight; Lymphocytes # (A) 1.9 k/uL (1.0-4.8); Lymphocytes % (A) 28 %; MCH 29.2 pg (25.0-35.0); Mean Platelet Volume 7.2; Monocytes # (A) 0.5 k/uL (0-1.0); Monocytes % (A) 7 %; Neutrophils % (A) 59 %; Platelet Count 216 k/uL (150-450); RBC 4.51 m/uL (3.80-5.40); RDW 14.4 % (11.5-15.5); WBC 6.8 k/uL (3.8-10.6)
--- NOTE | 2018-04-22 13:33 | P.PN ---
<Zoila Hawk M - Last Filed: 04/22/18 13:27> Subjective Progress Note Date: 04/22/18 53-year-old female seen this morning. Had been up ambulating in the hallway. States is able to take a clear liquid diet tolerating reports experiencing a lot of gas discomfort not passing gas and belching Hemoglobin 13.2 heart rate in the 70s room air sat 92 abdomen soft surgical tenderness appropriate surgical dressing sites dry Laparoscopic sleeve gastrectomy DONE on April 20 Objective - Vital Signs Vital signs: Vital Signs Temp 98 F 04/22/18 07:45 Pulse 68 04/22/18 09:21 Resp 17 04/22/18 07:45 BP 121/62 04/22/18 07:45 Pulse Ox 93 L 04/22/18 07:45 Intake & Output 04/21/18 04/22/18 04/22/18 18:59 06:59 18:59 Intake Total 150 1021.2 Balance 150 1021.2 Weight 152.1 kg Intake: Intake, IV Titration 1021.2 Amount Mvi, Adult No.4 with Vit 1021.2 K 10 ml Thiamine 100 mg Folic Acid 1 mg Potassium Chloride 20 meq In Sodium Chloride 0.9% 1, 000 ml @ 100 mls/hr IV . BY DURATION [facility] Rx#: [id number] Oral 150 Other: Voiding Method Toilet # Voids 2 - Exam Physical exam 53-year-old female resting in bed up in the sorto ambulating this morning Lungs adequate air movement bilaterally no shortness of breath on room air Heart S1 2 audible regular Abdomen obese surgical incision sites dry few hypoactive bowel tones tolerating clear liquid no nausea no vomiting states pain medication effective for pain control Extremities no edema noted - Labs CBC & Chem 7: 04/22/18 11:37 04/21/18 06:40 Assessment and Plan Assessment: Impression Morbid obesity status post laparoscopic sleeve gastrectomy done on April 20 Morbid obesity BMI 52 Asthma no evidence of an exacerbation Hypertension essential Plan Anticipate discharge in 24 Continue postop bariatric care Bariatric diet as ordered Pain control PT OT eval Further recommendations pending clinical course The above impression and plan of care have been discussed and directed by signing physician. Zoila Hawk nurse practitioner acting as scribe for signing physician. <Maldonado Subramanian - Last Filed: 04/22/18 22:26> Objective - Vital Signs Vital signs: Vital Signs Temp 97.7 F 04/22/18 19:00 Pulse 63 04/22/18 20:00 Resp 18 04/22/18 20:00 BP 127/82 04/22/18 19:00 Pulse Ox 97 04/22/18 19:00 Intake & Output 04/22/18 04/22/18 04/23/18 06:59 18:59 06:59 Intake Total 2020.2 Balance 2020.2 Intake: Intake, IV Titration 2020.2 Amount 0.9% NaCl with KCl 20 Meq 1000 /l 1,000 ml @ 100 mls/hr IV .BY DURATION [facility] Rx#: [id number] Mvi, Adult No.4 with Vit 1021.2 K 10 ml Thiamine 100 mg Folic Acid 1 mg Potassium Chloride 20 meq In Sodium Chloride 0.9% 1, 000 ml @ 100 mls/hr IV . BY DURATION [facility] Rx#: [id number] Other: Voiding Method Toilet Toilet - Labs CBC & Chem 7: 04/22/18 11:37 04/21/18 06:40 Assessment and Plan Assessment: As above. Patient remains slightly nauseous. Not taking in a good volume of liquids thus far. Pain is well controlled. She is ambulating. Probable discharge tomorrow as long as she is drinking enough liquids. (1) Morbid obesity Current Visit: Yes Status: Acute Code(s): E66.01 - MORBID (SEVERE) OBESITY DUE TO EXCESS CALORIES SNOMED Code(s): 491306882
[2018-04-22] MEDS: SIMETHICONE 40 MG/0.6 ML DROPS 2,000 MG/30 ML BOTTLE PO PRN ×2 (15:14→21:04)
[2018-04-22] MEDS: HYOSCYAMINE ORAL DROPS 1.875 MG/15 ML BOTTLE PO PRN ×2 (15:14→21:04)
[2018-04-23 00:53] VITALS: RESP 16
[2018-04-23] MEDS: SIMETHICONE 40 MG/0.6 ML DROPS 2,000 MG/30 ML BOTTLE PO PRN (03:06)
[2018-04-23] MEDS: HYOSCYAMINE ORAL DROPS 1.875 MG/15 ML BOTTLE PO PRN (03:06)
[2018-04-23] MEDS: METOCLOPRAMIDE 5 MG/ML 2 ML VIAL IVP PRN (03:06)
[2018-04-23] MEDS: LACTATED RINGERS 1,000 ML IV SCH (04:07)
[2018-04-23] MEDS: KETOROLAC 30 MG/ML 1 ML VIAL IVP SCH (05:42)
--- NOTE | 2018-04-23 05:51 | PN ---
PROGRESS NOTE DATE OF SERVICE: 04/22/2018 PRESENTING COMPLAINT: Sleeve gastrectomy. INTERVAL HISTORY: Patient is status post sleeve gastrectomy. Looking much better this morning. Tolerating a liquid diet. Some abdominal discomfort. Has been up to the bathroom. Not had any bowel movement. REVIEW OF SYSTEMS: Done for constitutional, cardiovascular, GI, pulmonary; relevant findings above. CURRENT MEDICATIONS: Current medications are reviewed. PHYSICAL EXAMINATION: On examination, temperature 98, pulse 70, respirations 17, blood pressure 121/62, pulse ox 93% on room air. GENERAL APPEARANCE: Sitting at the edge of the bed, awake, comfortable. EYES: Pupils equal. Conjunctivae normal. HENT: External appearance of nose and ears normal. Oral cavity normal. NECK: JVD not raised. Mass not palpable. RESPIRATORY: Effort . LUNGS: Decreased distant breath sounds. CARDIOVASCULAR: Heart sounds muffled, no edema. ABDOMEN: Soft, minimal tenderness. Liver and spleen not palpable. PSYCHIATRY: Alert and oriented x3. Mood and affect normal. INVESTIGATIONS: White count 6.8, hemoglobin 13.2. ASSESSMENT: 1. Sleeve gastrectomy for morbid obesity, body mass index greater than 52. 2. Mild persistent asthma, stable. 3. Essential hypertension. 4. Hypothyroidism. 5. Right-sided sciatica. PLAN: Stable. Continue the medication and treatment plan. Care was discussed with the patient. Thank you, Dr. Subramanian. NEY / JIMMY: [id number] /
[2018-04-23] MEDS: SYMBICORT 160-4.5 MCG INHALER INHALATION SCH (08:24)
[2018-04-23] MEDS: ALBUTEROL NEBULIZED 2.5 MG/3 ML INHALATION SCH ×2 (08:24→11:28)
[2018-04-23 08:26] VITALS: BP 122/80; PULSE 63; TEMP 97.5
--- NOTE | 2018-04-23 10:11 | P.DS ---
<Zoila Hawk M - Last Filed: 04/23/18 10:03> Providers Date of admission: 04/20/18 06:16 Expected date of discharge: 04/23/18 Attending physician: Maldonado Subramanian Consults: 04/20/18 10:14 Consult Physician Routine Consulting Provider: Basil Shearer Consult Reason/Comments: Medical management Do you want consulting provider notified?: Yes 04/20/18 11:09 Consult Physician Routine Consulting Provider: Tarun Keller Consult Reason/Comments: medical mangement Do you want consulting provider notified?: Yes Primary care physician: Basil [facility] Course: 53-year-old female presented on an elective basis to undergo sleeve gastrectomy for morbid obesity. Patient had previous lap band placed in surgically removed because of intolerance. A recent EGD showed mild gastritis without hiatal hernia. No abdominal pain. The day of discharge patient was up ambulating in the hallway on room air heart rate in the 70s and tolerating bariatric clear. Patient was anxious to be discharged home plan Tylenol is effective for pain control surgical dressing sites were dry Laparoscopic sleeve gastrectomy DONE on April 20 Impression Morbid obesity status post laparoscopic sleeve gastrectomy done on April 20 Morbid obesity BMI 52 Asthma no evidence of an exacerbation Hypertension essential The above impression and plan of care have been discussed and directed by signing physician. Zoila Hawk nurse practitioner acting as scribe for signing physician. Plan - Discharge Summary Discharge Rx Participant: Yes New Discharge Prescriptions: New Bisacodyl [Dulcolax] 5 mg PO DAILY PRN #10 tablet.dr PRN Reason: Constipation Ondansetron Odt [Zofran Odt] 4 mg PO Q8HR PRN #9 tab PRN Reason: Nausea Simethicone 40 mg/0.6 ml Drops [Mylicon Drops] 40 mg PO PCHS PRN #30 ml PRN Reason: Gas traMADol HCl [Ultram] 50 mg PO Q6H PRN #12 tab PRN Reason: Pain Hyoscyamine Oral Drops [Levsin Drops] 0.125 mg PO Q6HR PRN #600 ml PRN Reason: Esophageal Spasm Continue Verapamil HCl [Verapamil ER] 180 mg PO DAILY Losartan Potassium [Cozaar] 100 mg PO DAILY Thyroid,Pork [[place] Thyroid] 120 mg PO DAILY Thyroid, Pork [[place] Thyroid] 30 mg PO DAILY Montelukast [Singulair] 10 mg PO DAILY Budesonide/Formoterol Fumarate [Symbicort 160-4.5 Mcg Inhaler] 2 puff INHALATION RT-BID Ipratropium [place] [Atrovent Hfa] 1 puff INHALATION RT-QID PRN PRN Reason: ASTHMA Albuterol Sulfate [Proair Hfa] 1 - 2 puff INHALATION RT-Q6H PRN PRN Reason: ASTHMA Acetaminophen [Tylenol Extra Strength] 500 - 1,000 mg PO Q6H PRN PRN Reason: Pain Discharge Medication List Losartan Potassium [Cozaar] 100 mg PO DAILY 01/01/18 [History] Verapamil HCl [Verapamil ER] 180 mg PO DAILY 01/01/18 [History] Thyroid, Pork [[place] Thyroid] 30 mg PO DAILY 03/23/18 [History] Thyroid,Pork [[place] Thyroid] 120 mg PO DAILY 03/23/18 [History] Acetaminophen [Tylenol Extra Strength] 500 - 1,000 mg PO Q6H PRN 04/13/18 [ History] Albuterol Sulfate [Proair Hfa] 1 - 2 puff INHALATION RT-Q6H PRN 04/13/18 [ History] Budesonide/Formoterol Fumarate [Symbicort 160-4.5 Mcg Inhaler] 2 puff INHALATION RT-BID 04/13/18 [History] Ipratropium [place] [Atrovent Hfa] 1 puff INHALATION RT-QID PRN 04/13/18 [ History] Montelukast [Singulair] 10 mg PO DAILY 04/13/18 [History] Bisacodyl [Dulcolax] 5 mg PO DAILY PRN #10 tablet. 04/20/18 [Rx] Ondansetron Odt [Zofran Odt] 4 mg PO Q8HR PRN #9 tab 04/20/18 [Rx] Simethicone 40 mg/0.6 ml Drops [Mylicon Drops] 40 mg PO PCHS PRN #30 ml [Rx] traMADol HCl [Ultram] 50 mg PO Q6H PRN #12 tab 04/20/18 [Rx] Hyoscyamine Oral Drops [Levsin Drops] 0.125 mg PO Q6HR PRN #600 ml 08/30/18 [Rx] Follow up Appointment(s)/Referral(s): Maldonado Subramanian MD [Medical Doctor] - 05/05/18 1:10 pm (Bariatric center) Jeanine Hernandez NPC [REFERRING] - 05/01/18 9:00 am Patient Instructions/Handouts: Nutrition after Bariatric Surgery (DC), Laparoscopic Sleeve Gastrectomy (DC) Activity/Diet/Wound Care/Special Instructions: Bariatric clear liquid diet No tub bath for six weeks. Shower daily. No lifting over 10 pounds for the next 6 weeks.. May use ice packs to surgical site. No driving while taking narcotic for pain. Discharge Disposition: HOME SELF-CARE <Maldonado Subramanian - Last Filed: 04/23/18 16:59> - Discharge Diagnosis(es) (1) Morbid obesity Status: Acute Hospital Course: As above. Patient tolerating diet today. She was discharged prior to my evaluation. Follow-up one week.
[2018-04-23] MEDS: MONTELUKAST 10 MG TAB PO SCH (10:46)
[2018-04-23] MEDS: LOSARTAN 50 MG TAB PO SCH (10:46)
[2018-04-23] MEDS: THYROID, PORK 30 MG TAB PO SCH ×2 (10:47)
[2018-04-23] MEDS: ENOXAPARIN 40 MG/0.4 ML SYRINGE SQ SCH (10:47)
[2018-04-23] MEDS: VERAPAMIL SR 180 MG TABLET.ER PO SCH (10:47)
[2018-04-23] MEDS: PANTOPRAZOLE 40 MG/10 ML VIAL IV SCH (10:49)
== END 2018-04-23 12:37 | disposition home or self-care (01) | DRG 621 ==
LOC: 2ORMAIN 06:16 → 3SUR 10:16
PROVIDERS: ADMIT Surgery; ATTEND Surgery
PROC: 0DB64Z3 Excision of Stomach, Percutaneous Endoscopic Approach, Vertical (ICD-10-PCS; principal; 2018-04-20 08:15)
DX: E66.01 Morbid (severe) obesity due to excess calories (principal); E06.3 Autoimmune thyroiditis; I10 Essential (primary) hypertension; I34.1 Nonrheumatic mitral (valve) prolapse; J45.30 Mild persistent asthma, uncomplicated; M54.31 Sciatica, right side; E03.9 Hypothyroidism, unspecified; G47.33 Obstructive sleep apnea (adult) (pediatric); K21.9 Gastro-esophageal reflux disease without esophagitis; R11.0 Nausea; Z68.43 Body mass index [BMI] 50.0-59.9, adult; Z79.899 Other long term (current) drug therapy; Z79.51 Long term (current) use of inhaled steroids; Z79.890 Hormone replacement therapy; Z90.49 Acquired absence of other specified parts of digestive tract; Z98.84 Bariatric surgery status; Z98.51 Tubal ligation status; Z80.7 Family history of other malignant neoplasms of lymphoid, hematopoietic and related tissues; Z82.49 Family history of ischemic heart disease and other diseases of the circulatory system; Z88.1 Allergy status to other antibiotic agents; Z88.5 Allergy status to narcotic agent; Z91.018 Allergy to other foods; Z91.048 Other nonmedicinal substance allergy status
CPT/HCPCS: 74240; 80051; 82310; 82565; 83735; 84100; 84520; 85025; 88307; 94640; 94760; 94762

== ENCOUNTER → 2018-05-19 | Outpatient (CLI) | payer BC ==
[2018-05-19 14:31] VITALS: BP 132/76; PULSE 78; RESP 16; TEMP 98.1; BMI 49.4
--- NOTE | 2018-05-19 15:45 | P.BASOAP ---
Subjective Progress Note Date: 05/19/18 Principal diagnosis: Morbid obesity Patient returns today for follow-up. Last seen 2 weeks ago. Her rash is gone now. Still somewhat fatigued although blood pressure is now in the normal range after cutting her Cozaar and a half. Adequate protein and liquid intake. Not taking any antacids. No reflux. Objective - Vital Signs Vital signs: Vital Signs Temp 98.1 F 05/19/18 14:28 Pulse 78 05/19/18 14:28 Resp 16 05/19/18 14:28 BP 132/76 05/19/18 14:28 Pulse Ox Intake & Output 05/18/18 05/19/18 05/19/18 18:59 06:59 18:59 Weight 143.335 kg - Exam Abdomen: Soft, nondistended, nontender, incision clean and dry Assessment/Plan (1) Morbid obesity Narrative/Plan: Continue dietary and exercise regimen. No need for antiacids at this time. Check one month labs today. Follow up one month. Plan: Date: 05/19/18 Initial Weight: 160.572 kg Initial BMI: 55.4 Current Weight: 143.335 kg Current BMI: 49.4 Type of Surgery: Total Volume in Band: Previous Volume: Volume Removed: Volume Added: Band Size:
[2018-05-19 16:13] LABS: HCT 45.3 % (34.0-46.0); HGB 14.6 gm/dL (11.4-16.0); MCH 28.8 pg (25.0-35.0); MCHC 32.2 g/dL (31.0-37.0); MCV 89.5 fL (80.0-100.0); Mean Platelet Volume 8.5; Platelet Count 209 k/uL (150-450); RBC 5.07 m/uL (3.80-5.40)
[2018-05-19 16:33] LABS: ALT 36 U/L (9-52); AST 24 U/L (14-36); Albumin 3.7 g/dL (3.5-5.0); Alkaline Phosphatase 66 U/L (38-126); Anion Gap 9 mmol/L; Blood Urea Nitrogen 14 mg/dL (7-17); Calcium 9.3 mg/dL (8.4-10.2); Carbon Dioxide 27 mmol/L (22-30); Chloride 104 mmol/L (98-107); Glucose 87 mg/dL (74-99); Potassium 3.8 mmol/L (3.5-5.1); Sodium 140 mmol/L (137-145); Total Bilirubin 0.4 mg/dL (0.2-1.3); Total Protein 6.4 g/dL (6.3-8.2)
[2018-05-20 03:08] LABS: Vitamin D 25 Hydroxy 27.4 ng/mL (30.0-100.0)
== END ==
LOC: BARWHC3 14:03
PROVIDERS: ATTEND Surgery
DX: E66.01 Morbid (severe) obesity due to excess calories (principal); K90.89 Other intestinal malabsorption; E55.9 Vitamin D deficiency, unspecified; Z68.42 Body mass index [BMI] 45.0-49.9, adult
CPT/HCPCS: 36415; 80053; 82306; 82607; 83540; 84425; 85027; 97803; 99211

== ENCOUNTER → 2018-07-21 | Outpatient (CLI) | payer BC ==
[2018-07-21 14:02] VITALS: BP 146/87; PULSE 56; TEMP 98.2; BMI 45.7
--- NOTE | 2018-07-21 14:43 | P.BASOAP ---
Subjective Progress Note Date: 07/21/18 Principal diagnosis: Morbid obesity Patient doing well at this time. This would be her 3 month postoperative visit. Her fatigue is improved. Taking occasional antiacids for mild reflux. Had her 1 month labs drawn and her vitamin D level was slightly low. Denies pain. No vomiting. Objective - Vital Signs Vital signs: Vital Signs Temp 98.2 F 07/21/18 13:55 Pulse 56 L 07/21/18 13:55 Resp BP 146/87 07/21/18 13:55 Pulse Ox Intake & Output 07/20/18 07/21/18 07/21/18 18:59 06:59 18:59 Weight 132.449 kg - Exam Abdomen: Soft, nontender, nondistended Assessment/Plan (1) Morbid obesity Narrative/Plan: Patient doing well at this time. Continue dietary and exercise regimen. Continue as needed antiacids. Follow-up 4-6 weeks. Plan: Date: 07/21/18 Initial Weight: 160.572 kg Initial BMI: 55.4 Current Weight: 132.449 kg Current BMI: 45.7 Type of Surgery: Total Volume in Band: Previous Volume: Volume Removed: Volume Added: Band Size:
[2018-07-21 15:32] LABS: HCT 45.4 % (34.0-46.0); HGB 14.4 gm/dL (11.4-16.0); Hypochromasia Slight; MCH 29.2 pg (25.0-35.0); MCHC 31.7 g/dL (31.0-37.0); MCV 92.1 fL (80.0-100.0); Mean Platelet Volume 9.1; Platelet Count 194 k/uL (150-450); RBC 4.93 m/uL (3.80-5.40); RDW 14.2 % (11.5-15.5); WBC 4.6 k/uL (3.8-10.6)
[2018-07-21 18:54] LABS: Albumin 3.9 g/dL (3.80-4.90); Albumin/Globulin Ratio 2.05 (1.20-2.10); Anion Gap 5.4 mmol/L (4.00-12.00); Calcium 9.3 mg/dL (8.7-10.3); Carbon Dioxide 29.6 mmol/L (21.6-31.8); Globulin 1.9 g/dL (2.1-3.7); Total Bilirubin 0.4 mg/dL (0.2-1.2); Total Protein 5.8 g/dL (6.2-8.2)
[2018-07-21 18:58] LABS: Vitamin D 25 Hydroxy 50.6 ng/mL (30.0-100.0)
[2018-07-22 12:57] LABS: Vitamin A 35 ug/dL (38-106)
[2018-07-22 13:14] LABS: Vitamin B1 71 ug/L (38-122)
== END | disposition home or self-care (01) ==
LOC: BARWHC3 13:13
PROVIDERS: ATTEND Surgery
DX: Z09 Encounter for follow-up examination after completed treatment for conditions other than malignant neoplasm (principal); E66.01 Morbid (severe) obesity due to excess calories; E55.9 Vitamin D deficiency, unspecified; K21.9 Gastro-esophageal reflux disease without esophagitis; Z98.84 Bariatric surgery status; Z68.42 Body mass index [BMI] 45.0-49.9, adult
CPT/HCPCS: 36415; 80053; 82306; 82607; 82746; 83540; 84425; 84590; 85027; 99211

== ENCOUNTER → 2018-09-01 | Outpatient (CLI) | payer BC ==
[2018-09-01 13:28] VITALS: BP 144/87; PULSE 72; RESP 16; TEMP 98.2; BMI 43.9
--- NOTE | 2018-09-01 13:54 | P.BASOAP ---
Subjective Progress Note Date: 09/01/18 Principal diagnosis: Morbid obesity Patient here today for 6 week follow-up visit. Last seen in June. Her labs were checked at that time and her vitamin A was low. She started taking vitamin A supplements. She has lost 11 pounds since her last visit. She just recently returned from a cruise. Not taking antiacids. No reflux or vomiting. Hunger well-controlled. Patient has another cruise scheduled in September. Objective - Vital Signs Vital signs: Vital Signs Temp 98.2 F 09/01/18 13:25 Pulse 72 09/01/18 13:25 Resp 16 09/01/18 13:25 BP 144/87 09/01/18 13:25 Pulse Ox Intake & Output 08/31/18 09/01/18 09/01/18 18:59 06:59 18:59 Weight 127.459 kg - Exam Abdomen: Soft, nontender, nondistended Assessment/Plan (1) Morbid obesity Narrative/Plan: Patient doing well at this time. Continue dietary and exercise regimen. Continue vitamin A and multivitamin supplements. Plan follow-up in early October. We'll check labs at that time. Plan: Date: 09/01/18 Initial Weight: 160.572 kg Initial BMI: 55.4 Current Weight: 127.459 kg Current BMI: 43.9 Type of Surgery: Total Volume in Band: Previous Volume: Volume Removed: Volume Added: Band Size:
== END | disposition home or self-care (01) ==
LOC: BARWHC3 13:18
PROVIDERS: ATTEND Surgery
DX: E66.01 Morbid (severe) obesity due to excess calories (principal); Z68.41 Body mass index [BMI] 40.0-44.9, adult
CPT/HCPCS: 99211

== ENCOUNTER → 2018-11-03 | Outpatient (CLI) | payer BC ==
[2018-11-03 13:14] VITALS: BP 134/82; PULSE 62; RESP 16; TEMP 97.8; BMI 41.8
[2018-11-03 14:33] LABS: HCT 46.1 % (34.0-46.0); HGB 14.9 gm/dL (11.4-16.0); MCH 29.2 pg (25.0-35.0); MCHC 32.3 g/dL (31.0-37.0); MCV 90.2 fL (80.0-100.0); Mean Platelet Volume 7.4; Platelet Count 220 k/uL (150-450); RBC 5.11 m/uL (3.80-5.40); RDW 13.8 % (11.5-15.5); WBC 5.9 k/uL (3.8-10.6)
--- NOTE | 2018-11-03 14:33 | P.BASOAP ---
Subjective Progress Note Date: 11/03/18 Principal diagnosis: Morbid obesity Patient doing well today. Good weight loss since last visit. Last seen in August. Not taking any antacids currently. Due for 6 month labs. Objective - Vital Signs Vital signs: Vital Signs Temp 97.8 F 11/03/18 13:12 Pulse 62 11/03/18 13:12 Resp 16 11/03/18 13:12 BP 134/82 11/03/18 13:12 Pulse Ox Intake & Output 11/02/18 11/03/18 11/03/18 18:59 06:59 18:59 Weight 121.109 kg - Exam Abdomen: Soft, nontender, nondistended Assessment/Plan (1) Morbid obesity Narrative/Plan: Will check 6 month labs at this time. 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 Continue dietary and exercise regimen. Follow-up in 1-2 months. Plan: Date: 11/03/18 Initial Weight: 160.572 kg Initial BMI: 55.4 Current Weight: 121.109 kg Current BMI: 41.8 Type of Surgery: Total Volume in Band: Previous Volume: Volume Removed: Volume Added: Band Size:
[2018-11-03 19:55] LABS: Anion Gap 7.7 mmol/L (4.00-12.00); Calcium 9.5 mg/dL (8.7-10.3); Carbon Dioxide 28.3 mmol/L (21.6-31.8); Potassium 4.2 mmol/L (3.5-5.5); Total Bilirubin 0.5 mg/dL (0.2-1.2)
[2018-11-03 20:03] LABS: T4, Free (Free Thyroxine) 1.4 ng/dL (0.80-1.80)
[2018-11-03 20:07] LABS: Folate, Serum 13.6 ng/mL
[2018-11-05 07:57] LABS: Vitamin A 38 ug/dL (38-106)
== END | disposition home or self-care (01) ==
LOC: BARWHC3 12:51
PROVIDERS: ATTEND Surgery
DX: E66.01 Morbid (severe) obesity due to excess calories (principal); E06.3 Autoimmune thyroiditis; E55.9 Vitamin D deficiency, unspecified; E03.9 Hypothyroidism, unspecified; Z68.41 Body mass index [BMI] 40.0-44.9, adult
CPT/HCPCS: 80053; 82306; 82607; 82746; 83540; 84425; 84439; 84443; 84481; 84590; 85027; 99211

== ENCOUNTER → 2022-05-21 | Outpatient (CLI) | payer BC ==
[2022-05-21 15:35] VITALS: BP 140/84; PULSE 73; RESP 16; TEMP 98.3; BMI 38.0
--- NOTE | 2022-05-21 16:04 | P.BASOAP ---
Subjective Progress Note Date: 05/21/22 Principal diagnosis: Morbid obesity, change in bowel habits 57-year-old female known to our service. Last seen October 2018. Patient underwent previous laparoscopic band placement and subsequent removal. Patient then underwent sleeve gastrectomy March 2018. Weight today 243. This is lowest weight she has been doing her weight loss during. Patient has mild nausea but no vomiting. She describes increasing diarrhea after meals. She usually has 2-3 loose stools after meals. No rectal bleeding or melena. Patient's father had colon cancer around this age. Patient's last colonoscopy 7 years ago. Denies heartburn. Does not take antiacids. Objective - Vital Signs Vital signs: Vital Signs Temp 98.3 F 05/21/22 15:32 Pulse 73 05/21/22 15:32 Resp 16 05/21/22 15:32 BP 140/84 05/21/22 15:32 Pulse Ox FiO2 Intake & Output 05/20/22 05/21/22 05/21/22 18:59 06:59 18:59 Weight 110.223 kg - Exam Abdomen: Soft, nontender, nondistended Assessment/Plan (1) Morbid obesity Narrative/Plan: Patient doing well at this time. Patient with worsening diarrhea lately. We'll schedule for colonoscopy at this time for diagnosis of change in bowel habits. Will obtain biopsies to rule out microscopic colitis. If no findings identified to explain her symptoms Will start trial of colestipol. Plan: Date: 05/21/22 Initial Weight: 160.572 kg Initial BMI: 55.4 Current Weight: 110.223 kg Current BMI: 38.0 Type of Surgery: Vertical Sleeve Gastrectomy Total Volume in Band: Previous Volume: Volume Removed: Volume Added: Band Size:
== END ==
LOC: BARWHC3 14:36
PROVIDERS: ATTEND Surgery
DX: E66.01 Morbid (severe) obesity due to excess calories (principal); R19.7 Diarrhea, unspecified; Z68.38 Body mass index [BMI] 38.0-38.9, adult; Z98.84 Bariatric surgery status; Z88.1 Allergy status to other antibiotic agents; Z88.5 Allergy status to narcotic agent; Z91.018 Allergy to other foods; Z91.09 Other allergy status, other than to drugs and biological substances
CPT/HCPCS: 99211

== ENCOUNTER 2022-06-11 10:50 | Day surgery (SDC) | payer BC ==
[2022-06-07 13:40] VITALS: BMI 37.0
[~2022-06-11 10:50] MED LIST changes: -DEXAMETHASONE SOD PHOSPHATE 10 MG/ML 1 ML VIAL IV ONE; +LACTATED RINGERS 1,000 ML IV SCH; -MIDAZOLAM 2 MG/2 ML VIAL IV PRN; -ONDANSETRON 4 MG/2 ML VIAL IVP ONE; -SCOPOLAMINE 1.5MG/72HR PATCH TRANSDERM ONE
[2022-06-11 11:39] VITALS: TEMP 98
[2022-06-11] MEDS ORDERED: LACTATED RINGERS 1,000 ML IV ONE (11:40)
[2022-06-11] MEDS ORDERED: PROPOFOL 10 MG/ML 20 ML VIAL IV ONE (11:59)
[2022-06-11] MEDS ORDERED: LIDOCAINE 2% INJ 20 MG/ML (2 ML VIAL) ONE (11:59)
--- NOTE | 2022-06-11 12:03 | P.GSHP ---
History of Present Illness H&P Date: 06/11/22 Chief Complaint: Change in bowel habits 57-year-old female here today for colonoscopy. Family history of colon cancer in her father. Patient with intermittent loose stools. No rectal bleeding or melena. Last colonoscopy 7 years ago. Past Medical History Past Medical History: Asthma, Hypertension, Mitral Valve Prolapse (MVP), Thyroid Disorder Additional Past Medical History / Comment(s): STATES COLITIS SEEN ON CT SCAN History of Any Multi-Drug Resistant Organisms: None Reported Past Surgical History: Bariatric Surgery, Section, Cholecystectomy, Tubal Ligation, Uterine Ablation Additional Past Surgical History / Comment(s): HAS HAD LAP BAND SX AND REMOVAL sleeve gastrectomy mar 2018 (Dr. Tucker) Past Anesthesia/Blood Transfusion Reactions: Postoperative Nausea & Vomiting (PONV) Additional Past Anesthesia/Blood Transfusion Reaction / Comment(s): AFTER CSECTION Past Psychological History: No Psychological Hx Reported Smoking Status: Never smoker Past Alcohol Use History: Occasional Past Drug Use History: None Reported - Past Family History Father Family Medical History: Cancer, Deep Vein Thrombosis (DVT) Mother Family Medical History: Cancer, Deep Vein Thrombosis (DVT) Additional Family Medical History / Comment(s): NHL Medications and Allergies Home Medications Medication Instructions Recorded Confirmed Type Thyroid,Pork [[place] Thyroid] 180 mg PO DAILY 03/23/18 06/11/22 History Dronedarone HCl [Multaq] 400 mg PO BID 06/07/22 06/11/22 History Allergies Allergy/AdvReac Type Severity Reaction Status Date / Time ciprofloxacin [From Cipro] Allergy Rash/Hives Verified 06/11/22 11:24 codeine Allergy Nausea & Verified 06/11/22 11:24 Vomiting levofloxacin [From Levaquin] Allergy Unknown Verified 06/11/22 11:24 metronidazole [From Flagyl] Allergy Rash/Hives Verified 06/11/22 11:24 perfume Allergy Dyspnea Verified 06/11/22 11:24 gluten AdvReac Nausea & Verified 06/11/22 11:24 Vomiting & Diarrhea Surgical - Exam Vital Signs Temp Pulse Resp BP Pulse Ox 98 F 71 16 145/70 98 06/11/22 11:30 06/11/22 11:30 06/11/22 11:30 06/11/22 11:30 06/11/22 11:30 Physical exam: General: Well-developed, well-nourished HEENT: Normocephalic, sclerae nonicteric Abdomen: Nontender, nondistended Extremities: No edema Neuro: Alert and oriented Assessment and Plan (1) Change in bowel habits Narrative/Plan: Will proceed with colonoscopy at this time Current Visit: Yes Status: Acute Code(s): R19.4 - CHANGE IN BOWEL HABIT SNOMED Code(s): 108285591
--- NOTE | 2022-06-11 12:21 | P.PCN ---
Date of Procedure: 06/11/22 Procedure(s) Performed: PREOPERATIVE DIAGNOSIS: Change in bowel habits POSTOPERATIVE DIAGNOSIS: Mild diverticulosis PROCEDURE: Colonoscopy with random biopsy and clip placement ANESTHESIA: MAC SURGEON: Maldonado Subramanian M.D. SPECIMENS: Random colon ENDOSCOPIC PROCEDURE: The patient was placed on the endoscopy table in the left decubitus position. The Olympus colonoscope was inserted into the anus and passed under direct visualization to the base of the cecum. The appendiceal orifice was visualized. From that point the scope was slowly withdrawn inspecting all surfaces carefully. There were no neoplastic inflammatory or polypoid lesions throughout the cecum, ascending, transverse, descending, sigm oid and rectum. There was mild left-sided diverticulosis noted. Multiple small biopsies of the colon were taken to rule out microscopic colitis. One of these sites bled more briskly than usual. A clip was deployed at that area with no further bleeding seen. This was present in the transverse colon region. Digital rectal examination was normal. The patient was taken to the recovery room in stable condition per anesthesia guidelines. RECOMMENDATIONS: Await biopsy results. Will start trial of colestipol for chronic diarrhea.
[2022-06-11 12:39] VITALS: BP 143/80; PULSE 64; RESP 16
== END 2022-06-11 13:08 | disposition home or self-care (01) ==
LOC: ORWHC2ENDO 10:50
PROVIDERS: ATTEND Surgery
DX: R19.4 Change in bowel habit (principal); K57.30 Diverticulosis of large intestine without perforation or abscess without bleeding; J45.909 Unspecified asthma, uncomplicated; I10 Essential (primary) hypertension; I48.91 Unspecified atrial fibrillation; I34.1 Nonrheumatic mitral (valve) prolapse; E07.9 Disorder of thyroid, unspecified; Z98.84 Bariatric surgery status; Z90.49 Acquired absence of other specified parts of digestive tract; Z98.51 Tubal ligation status; Z82.49 Family history of ischemic heart disease and other diseases of the circulatory system; Z88.1 Allergy status to other antibiotic agents; Z79.899 Other long term (current) drug therapy; Z80.0 Family history of malignant neoplasm of digestive organs
CPT/HCPCS: 88305; 45382; 45380; J2704; J2001